=== PATIENT | female | born 1960 | race Caucasian/White ===

== ENCOUNTER → 2018-03-29 | Outpatient (CLI) | payer BC ==
[~2018-03-29] MED LIST: IOPAMIDOL (ISOVUE 370) 100 ML BTL IV ONE
== END ==
LOC: FIMAGING 07:58
PROVIDERS: ATTEND Internal Medicine
DX: R91.8 Other nonspecific abnormal finding of lung field (principal); R06.09 Other forms of dyspnea
CPT/HCPCS: Q9967

== ENCOUNTER → 2018-04-05 | Outpatient (CLI) | payer BC | LOC: CIMAGING 07:11 | PROVIDERS: ATTEND Internal Medicine | DX: Q44.6 Cystic disease of liver (principal) | CPT/HCPCS: 76705-PO ==